=== PATIENT | male | born 2000 | race Two or more races ===

== ENCOUNTER 2022-01-20 16:59 | Emergency (ER) | payer SELFPAY ==
[~2022-01-20] VITALS: Ht 165.1 cm; Wt 79.0 kg
--- NOTE | 2022-01-20 18:19 | PHYS DOC ---
General Adult HPI: HPI: Patient is a 21 year old male who presents with right anterior knee pain. He was carrying some boxes downstairs and fell down about 5 or 6 stairs. He twisted his knee then landed directly on the knee. He reports he fell onto his right side onto his shoulder as well. He has no shoulder pain. Denies head injury or loss of consciousness. Denies headache, neck pain, back pain. He denies numbness or tingling. He is able to bear some weight on the right lower extremity, but with significant pain. He took naproxen around 2 PM today. This injury occurred around noon today. He has previously injured his right knee at work. No known specific injury, no history of fracture. He has not ever been seen for any these previous injuries. Review of Systems: Review of Systems: Constitutional: Denies fever or chills. [] Respiratory: Denies cough or shortness of breath. [] Cardiovascular: Denies chest pain or edema. [] GI: Denies abdominal pain, nausea, vomiting Musculoskeletal: Denies back pain or neck pain. Right knee pain. Integument: Denies rash. No abrasions or lacerations or open wounds. Neurologic: Denies headache, focal weakness or sensory changes. [] Psychiatric: Denies depression or anxiety. [] Heart Score: C/O Chest Pain: No Risk Factors: Risk Factors: DM, Current or recent (<one month) smoker, HTN, HLP, family history of CAD, obesity. Risk Scores: Score 0 - 3: 2.5% MACE over next 6 weeks - Discharge Home Score 4 - 6: 20.3% MACE over next 6 weeks - Admit for Clinical Observation Score 7 - 10: 72.7% MACE over next 6 weeks - Early Invasive Strategies Physical Exam: PE: Constitutional: Well developed, well nourished, no acute distress, non-toxic appearance. [] HENT: Normocephalic, atraumatic, Eyes: Conjunctive are normal, no scleral icterus Neck: Normal range of motion, no tenderness, supple, no stridor. No midline tenderness or step-offs. No deformity Cardiovascular:Heart rate regular rhythm, +2 posterior tibial pulses, +2 radial pulses bilateral Lungs & Thorax: Bilateral breath sounds clear to auscultation [] Abdomen: Abdomen soft, nondistended, nontender to palpation. No evidence of abdominal trauma. Skin: Warm, dry, no erythema, no rash. No open wounds. Back: No tenderness, no CVA tenderness. Full range of motion. No midline tenderness or step-offs. Extremities: Mild to moderate soft tissue swelling of the right anterior knee. Medial compartment and anterior right knee tenderness. No ligamentous laxity. No calf tenderness. Painful active right knee extension and flexion. No crepitus or step-offs. Right hip, thigh/femur area are nontender. No ankle or foot tenderness, no foot drop. Neurologic: Alert and oriented X 3, normal motor function, normal sensory function, no focal deficits noted. [] Psychologic: Affect normal, judgement normal, mood normal. [] EKG: EKG: [] Radiology/Procedures: Radiology/Procedures: IMAGING REPORT Signed PATIENT: MAKENNA OJEDAUNT: [id number] : 2000 LOCATION: ER AGE: 21 SEX: M EXAM STATUS: REG ER ORD. PHYSICIAN: VINOD MARTINEZ DO REASON: pain, fall PROCEDURE: KNEE RIGHT 4V XR KNEE 4 VIEWS WITH PATELLA_RT History: Reason: pain, fall / Spl. Instructions: / History: Technique: 3 views right knee Comparison: None. Findings: No dislocation. No acute fracture. No significant knee joint effusion. Anterior knee soft tissue swelling. Impression: 1. No acute osseous abnormality. 2. Anterior knee soft tissue swelling. Electronically signed by: Nash Sanchez DO (01/20/2022 7:45 PM) [facility] DICTATED and SIGNED BY: NASH SANCHEZ DO DATE: 01/20/221943 Course & Med Decision Making: Course & Med Decision Making Pertinent Labs and Imaging studies reviewed. (See chart for details) The patient is given intramuscular Toradol and p.o. [place]. He already has a knee brace that he arrived with, I told him may use this as needed. I explained instructions for home care and RICE. He is given information for outpatient primary care services. I explained he may require outpatient MRI at some point time, especially if his symptoms persist. There is no indication for further emergent imaging studies based on current clinical presentation. Return precautions are given. He verbalizes understanding. Jose Disclaimer: Jose Disclaimer: This electronic medical record was generated, in whole or in part, using a voice recognition dictation system. Departure Departure Impression: Primary Impression: Right knee pain Qualified Codes: M25.561 - Pain in right knee Disposition: HOME / SELF CARE / HOMELESS Condition: STABLE Patient Instructions: Knee Sprain, RICE - Routine Care for Injuries Additional Instructions: Return to the ER for new injury or trauma, more severe pain, temperature 100.4 or higher, more severe swelling, if your joint becomes very hot, red or more swollen, or for any other concerns. Use the medication as needed/as directed. Please contact your primary care physician for follow-up. You may need an outpatient MRI to assess for any soft tissue injury, such as meniscus injury or ligament injury. Scripts Hydrocodone Bit/Acetaminophen (HYDROCODONE-APAP 5-325 ) 1 Tab Tablet 1 TAB PO PRN Q6HRS PRN for PAIN, #20 TAB 0 Refills Prov: VINOD MARTINEZ DO 01/20/22 VINOD MARTINEZ DO Jan 20, 2022 18:19
[2022-01-20 18:26] VITALS: BP 115/60
[2022-01-20] MEDS ORDERED: KETOROLAC 60 MG/2 ML VIAL. IM ONE (18:45)
[2022-01-20] MEDS ORDERED: HYDROcodone/APAP 5/325MG 1 TAB TABLET PO ONE (19:15)
--- NOTE | 2022-01-20 19:47 | RAD ---
XR KNEE 4 VIEWS WITH PATELLA_RT History: Reason: pain, fall / Spl. Instructions: / History: Technique: 3 views right knee Comparison: None. Findings: No dislocation. No acute fracture. No significant knee joint effusion. Anterior knee soft tissue swel ling. Impression: 1. No acute osseous abnormality. 2. Anterior knee soft tissue swelling. Electronically signed by: Nash Brito DO (01/20/2022 7:45 PM) [facility]
[2022-01-20] MEDS ORDERED: HYDR-2761 PO (20:15)
== END 2022-01-20 20:45 | disposition home or self-care (01) ==
LOC: ER 16:59
DX: M25.561 Pain in right knee (principal); G89.11 Acute pain due to trauma; W10.8XXA Fall (on) (from) other stairs and steps, initial encounter; Y93.89 Activity, other specified; Y92.89 Other specified places as the place of occurrence of the external cause; Y99.8 Other external cause status
CPT/HCPCS: 73564; 96372; 99283; J1885